=== PATIENT | female | born 1955 | race Caucasian/White ===

== ENCOUNTER 2016-11-27 07:57 | Emergency (ER) | payer BC, OTHER ==
[2016-11-27 09:02] VITALS: BP 158/74
--- NOTE | 2016-11-27 13:24 | UC ---
Kai Jimenez Claudia, scribed for Chrissy Ferraro DO on 11/27/16 at 0839 . Upper Extremity HPI - HPI Summary HPI Summary: 61 year old female presents to the [facility] with left shoulder pain. Pt notes sudden onset Monday. She notes the pain is aggravated with movement and is alleviated with rest.She notes pain aggravated specifically during internal rotation, and external rotation, and extension of the arm. Pt is unsure of the reason for her pain but thinks it might be from swinging her purse into her car , she denies any trauma. Pt notes pain aggravates throughout the day, especially at night. Pt only has pain when she moves the arm. No pain at rest or with exertion if the left arm is at rest. She notes that she does not have full ROM. She notes the pain is more on the anterior portion of her upper arm. PT denies any fever, chills, abd pain, SOB, CP, dizziness, ORTEGA, dysuria,cough, N/ V/D, skin diaphoresis. Pt is concerned because her right shoulder is not level with her left. PMHx of Neuropathy PSHx cervical disc dissection - History of Current Complaint Chief Complaint: UCRespiratory Stated Complaint: SHOULDER COMPLAINT Hx Obtained From: Patient Onset/Duration: Sudden Onset, Lasting Days, Still Present Severity Initially: Moderate Severity Currently: Moderate Location Of Pain: Is Discrete @ Character: Sharp, Aching Aggravating Factor(s): Movement Alleviating Factor(s): Rest Associated Signs And Symptoms: Negative: Swelling, Redness, Bruising, Fever, Weakness, Numbness/Tingling - Allergies/Home Medications Allergies/Adverse Reactions: Allergies Allergy/AdvReac Type Severity Reaction Status Date / Time Caffeine Allergy Intermediate See Comment Verified 11/27/16 08:14 Home Medications: Home Medications Cetirizine* [ZyrTEC*] 11/27/16 [History] Gabapentin CAP(*) [Neurontin 300 CAP(*)] 1 mg PO DAILY 11/27/16 [History Confirmed 11/27/16] Hydrocortisone 1% CREAM* 11/27/16 [History] diPHENhydraMINE PO* [Benadryl PO*] 11/27/16 [History] PMH/Surg Hx/FS Hx/Imm Hx Previously Healthy: Yes Endocrine History Of: Denies: Diabetes, Thyroid Disease Cardiovascular History Of: Reports: Cardiac Disorders - HEAR MURMUR: BENIGN, Hypertension Denies: Pacemaker/ICD, Myocardial Infarction, Congestive Heart Failure, Deep Vein Thrombosis Respiratory History Of: Reports: Asthma - EXERCISED INDUCED Denies: COPD, Pneumonia, Pulmonary Embolism GI/ History Of: Denies: Ulcer Neurological History Of: Denies: Migraine Psychological History Of: Denies: Anxiety, Depression, Bipolar Disorder, Schizophrenia Cancer History Of: Denies: Lung Cancer, Breast Cancer Other History Of: Negative For: Anticoagulant Therapy - Surgical History Surgical History: Yes Surgery Procedure, Year, and Place: 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, nose reconstructed, cervical disc surgery - Family History Known Family History: Positive: Cardiac Disease, Hypertension, Diabetes - Social History Occupation: Employed Full-time Lives: With Family Alcohol Use: None Substance Use Type: None Smoking Status (MU): Former Smoker Length of Time of Smoking/Using Tobacco: QUIT 25 YEARS AGO Review of Systems Constitutional: Negative - NO FEVER CHILLS Skin: Negative Eyes: Negative ENT: Negative Respiratory: Negative - NO SOB, COUGH Cardiovascular: Negative - NO CP Gastrointestinal: Negative - NO ABD PAIN, N/V/D Genitourinary: Negative Motor: Negative Neurovascular: Negative Musculoskeletal: Other: - left shoulder pain Neurological: Negative Psychological: Negative All Other Systems Reviewed And Are Negative: Yes Physical Exam Triage Information Reviewed: Yes Appearance: Well-Appearing, No Pain Distress Vital Signs: Initial Vital Signs Temp 97.8 F 11/27/16 08:20 Pulse 55 11/27/16 08:20 Resp 16 11/27/16 08:20 BP 158/74 11/27/16 08:20 Pulse Ox 96 11/27/16 08:20 Vital Signs Reviewed: Yes Eye Exam: Normal Eyes: Positive: Conjunctiva Clear. Negative: Discharge ENT Exam: Normal ENT: Positive: Hearing grossly normal, TMs normal. Negative: Tonsillar swelling , Tonsillar exudate, Trismus, Muffled/hoarse voice Dental Exam: Normal Neck exam: Normal Neck: Positive: Supple Respiratory Exam: Normal Respiratory: Positive: Lungs clear, Normal breath sounds, No respiratory distress, No accessory muscle use Cardiovascular Exam: Normal Cardiovascular: Positive: RRR, No Murmur Abdominal Exam: Normal Abdomen Description: Positive: Nontender, Soft Musculoskeletal Exam: Normal Neurological Exam: Normal Neurological: Positive: Alert, Muscle Tone Normal Psychological Exam: Normal Psychological: Positive: Age Appropriate Behavior Skin Exam: Normal - Additional Comments UPON ENTRANCE TO [facility] THOROUGH VISUAL INSPECTION THE PT CARRIES THE LEFT SHOULDER HIGHER THAN THE RIGHT, HOWEVER NO OTHER ABNORMALITIES ARE APPRECIATED BY VISUAL INSPECTION. NO BONY TENDERNESS ON PALPATION. ROM IS MILDLY RESTRICTED IN ALL PLANES DUE TO PAIN BUT WORST IN FLEXION AND INTERNAL ROTATION. MILD TENDERNESS TO PALPATION AT THE INSERTIONS OF SUPRASPINATIS, SUBSCAPULARIS, AND BICEPS TENDON., NO WEAKNESS WAS REVEALED BY SPECIAL TEST FOR ROTATOR CUFF TENDON. PT HAS GREATEST TENDERNESS OF SOFT TISSUES OF UPPER BRACHIUM. PT HAS NOTABLE LEVATOR SCAPULAE TIGHTNESS. Upper Extremity Course/Dx - Differential Dx/Diagnosis Differential Diagnosis/HQI/PQRI: Arthritis, Bursitis, Strain, Sprain Provider Diagnoses: SHOULDER SPRAIN Discharge - Discharge Plan Condition: Stable Disposition: HOME Prescriptions: Naproxen [Naproxen 500 MG TABS] 500 mg PO BID #10 tab Patient Education Materials: Shoulder Sprain (ED) Referrals: Gwen Elder NP [Primary Care Provider] - 2 Weeks Additional Instructions: ANTI-INFLAMMATORY MEDICATION: You have received a prescription for an antiinflammatory agent. This is an excellent, safe drug for pain control. In addition, it has potent antiinflammatory effects which are beneficial, especially in the treatment of injuries, arthritis, or tendonitis. It's best to take this medicine with food. Persons with ulcer disease or allergy to aspirin should notify their physician of this before taking this drug. Take the medication exactly as prescribed. Don't take additional doses unless instructed to do so by your doctor. If you develop wheezing, shortness of breath, hives, faintness, stomach pain, vomiting, or dark black stools, return for re-evaluation at once. ALTERNATE HOT AND COLD ONE RIGHT AFTER THE OTHER FOR 10-20 MINUTES EACH. ICE PACKS: Apply ice packs frequently against the painful area. Many different schedules are recommended, such as "20 minutes on, 20 minutes off" or "one hour ice, two hours rest." If you need to work, you may need to go longer between ice treatments. You should plan to have the area ice packed AT LEAST one fourth of the time. The ice should be applied over the wrap, tape, or splint, or over a layer of cloth -- not directly against the skin. Some ice bags have a built-in cloth and can be put directly on the skin. WARM PACKS: Apply gentle heat (such as a heating pad or hot water bottle) for about 20 to 30 minutes about every two hours -- at least four times daily. Warmth and elevation will help you make a more rapid recovery, and will ease the pain considerably. Do not use HOT heat, and never apply heat for longer than 30 minutes. The continuous heat can invisibly damage skin and muscles -- even when no burn is seen on the surface. Damaged muscles can make you MORE sore. PHYSICAL THERAPY REFERRAL: You have been prescribed physical therapy. Treatments may include stretching, exercise, application of heat or cold, and other modalities. After an injury, PT can reduce swelling and pain. In recovery, PT is used to restore mobility and strength. Your specific treatment goals are: Reduction of Swelling (EGS, US, ice as needed) __x___ Pain Reduction (EGS, US, ice as needed) TENS Pack Fitting and Instruction Wound Hydrotherapy _x____ Preservation of Mobility Gnosticist of Mobility Strength Gnosticist __x___ Work or Sports Hardening This instruction sheet also serves as your PHYSICAL THERAPY REFERRAL! Please take it with you to the therapist, so he/she will be aware of your diagnosis and treatment plan. You may see the physical therapist of your choice for these treatments, but may wish to check with your insurance to be sure the provider you select is covered. It's important to see the doctor to whom you have been referred for follow up. THE SLING IS FOR COMFORT. REMEMBER TO TAKE YOUR ARM OUT OF THE SLING SEVERAL TIMES A DAY TO MOVE THE ELBOW SO IT DOES NOT GET STIFF. YOU WOULD LIKELY BENEFIT FROM OSTEOPATHIC TREATMENT. WE RECOMMEND THAT YOU FIND AN OSTEOPATHIC PHYSICIAN IN YOUR AREA WHO FOCUSES EXCLUSIVELY ON OSTEOPATHIC MANIPULATIVE MEDICINE WITH EXPERTISE IN MYOFACIAL, LYMPHATIC, VISCERAL AND INTEROSSEOUS WORK The documentation as recorded by the Kai xavier Claudia accurately reflects the service I personally performed and the decisions made by me, Chrissy Ferraro DO.
== END 2016-11-27 09:16 | disposition home or self-care (01) ==
LOC: UCEAST 07:57
DX: S43.402A Unspecified sprain of left shoulder joint, initial encounter (principal); Z87.891 Personal history of nicotine dependence; X58.XXXA Exposure to other specified factors, initial encounter; Y92.9 Unspecified place or not applicable; J45.990 Exercise induced bronchospasm
CPT/HCPCS: 99213; G0463

== ENCOUNTER 2016-12-28 15:22 | Emergency (ER) | payer BC, OTHER ==
[2016-12-28 15:39] VITALS: BP 168/68
--- NOTE | 2016-12-28 15:58 | UC ---
Shoulder Pain HPI - HPI Summary HPI Summary: 61 yo female with 3/10 left trapezius pain atfer attempting to open a door at work today decreased ROM no weakness hx C-S fusion no ORTEGA - History of Current Complaint Chief Complaint: UCUpperExtremity Stated Complaint: SHOULDER/NECK INJURY Time Seen by Provider: 12/28/16 15:43 Hx Obtained From: Patient Onset/Duration: Sudden Onset, Lasting Hours Timing: Constant Severity Initially: Moderate Severity Currently: Mild Location Of Pain: Is Discrete @ - left trap Pain Intensity: 3 Pain Scale Used: 0-10 Numeric Character: Aching, Throbbing Aggravating Factor(s): Movement, Lifting Alleviating Factor(s): Rest Associated Signs And Symptoms: Positive: Negative Related History: Occupational Injury, Dominant Hand Right - Allergies/Home Medications Allergies/Adverse Reactions: Allergies Allergy/AdvReac Type Severity Reaction Status Date / Time Caffeine Allergy Intermediate See Comment Verified 12/28/16 15:39 PMH/Surg Hx/FS Hx/Imm Hx Previously Healthy: Yes Endocrine History Of: Reports: Dyslipidemia Denies: Diabetes, Thyroid Disease Cardiovascular History Of: Reports: Cardiac Disorders - HEAR MURMUR: BENIGN, Hypertension Denies: Pacemaker/ICD, Myocardial Infarction, Congestive Heart Failure, Deep Vein Thrombosis Respiratory History Of: Denies: COPD, Asthma, Pneumonia, Pulmonary Embolism GI/ History Of: Denies: Ulcer Neurological History Of: Denies: Migraine Psychological History Of: Denies: Anxiety, Depression, Bipolar Disorder, Schizophrenia Cancer History Of: Denies: Lung Cancer, Breast Cancer Other History Of: Negative For: Anticoagulant Therapy - Surgical History Surgical History: Yes Surgery Procedure, Year, and Place: CERVICAL SPINE SURGERY, 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 - Family History Known Family History: Positive: Cardiac Disease, Hypertension, Diabetes - Social History Alcohol Use: Occasionally Alcohol Amount: 2-3 DRINKS/WEEK Substance Use Type: None Smoking Status (MU): Former Smoker Length of Time of Smoking/Using Tobacco: QUIT 25 YEARS AGO Review of Systems Constitutional: Negative Skin: Negative Eyes: Negative ENT: Negative Respiratory: Negative Cardiovascular: Negative Gastrointestinal: Negative Genitourinary: Negative Motor: Decreased ROM Neurovascular: Negative Musculoskeletal: Myalgia Neurological: Negative Psychological: Negative All Other Systems Reviewed And Are Negative: Yes Physical Exam Triage Information Reviewed: Yes Appearance: Well-Appearing, No Pain Distress, Well-Nourished Vital Signs: Initial Vital Signs Temp 98.2 F 12/28/16 15:28 Pulse 50 12/28/16 15:28 Resp 16 12/28/16 15:28 BP 168/68 12/28/16 15:28 Pulse Ox 98 12/28/16 15:28 Vital Signs Reviewed: Yes Eyes: Positive: Conjunctiva Clear ENT: Positive: Hearing grossly normal. Negative: Nasal congestion, Nasal drainage, Tonsillar exudate, Trismus, Muffled/hoarse voice Neck: Positive: Supple, Nontender Respiratory: Positive: Lungs clear, Normal breath sounds, No respiratory distress Cardiovascular: Positive: RRR, No Murmur Abdomen Description: Positive: Nontender, No Organomegaly Musculoskeletal: Positive: Strength Intact, ROM Limited @ - able to abduct left shoulder to 120 degrees, left trapezius tender Neurological: Positive: Alert, Muscle Tone Normal Skin Exam: Normal Shoulder Course/Dx - Differential Dx/Diagnosis Provider Diagnoses: left trapezius strain/spasm Discharge - Discharge Plan Condition: Stable Disposition: HOME Patient Education Materials: Muscle Strain (ED) Forms: *Work Release Referrals: Gwen Elder NP [Primary Care Provider] - 2 Weeks (recheck BP) Additional Instructions: PT consult adveliana or sabas recheck here in one week if not better
== END 2016-12-28 16:16 | disposition home or self-care (01) ==
LOC: UCEAST 15:22
DX: S46.812A Strain of other muscles, fascia and tendons at shoulder and upper arm level, left arm, initial encounter (principal); X50.9XXA Other and unspecified overexertion or strenuous movements or postures, initial encounter; Y99.0 Civilian activity done for income or pay; E78.5 Hyperlipidemia, unspecified; Z87.891 Personal history of nicotine dependence; Z91.018 Allergy to other foods
CPT/HCPCS: 99211; G0463

== ENCOUNTER 2017-03-05 08:52 | Emergency (ER) | payer BC, OTHER ==
[2017-03-05 08:58] VITALS: BP 126/91
--- NOTE | 2017-03-05 09:28 | UC ---
Eye Complaint HPI - HPI Summary HPI Summary: The patient comes in today for: 1. Right upper eye lid pain: Onset: 6 days ago. Palliative/provocative: Better if she keeps her eye closed. Opening the eye lid makes it worse. Quality: Burning, itching. Region: Right upper eye lid. Severity: 5/10 if she "tries to squeeze her eye shut." Time: Constant. Associated symptoms: Fevers: None. Discharge: present, but clear. Vision: * - History of Current Complaint Chief Complaint: UCEye Stated Complaint: EYE COMPLAINT Time Seen by Provider: 03/05/17 09:16 Hx Obtained From: Patient - Allergies/Home Medications Allergies/Adverse Reactions: Allergies Allergy/AdvReac Type Severity Reaction Status Date / Time Caffeine Allergy Intermediate See Comment Verified 03/05/17 08:54 Home Medications: Home Medications Erythromycin (Ophth) [Ilotycin] 03/05/17 [History] PMH/Surg Hx/FS Hx/Imm Hx Previously Healthy: Yes - Cervical spinal surgery. 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 c section - Family History Known Family History: Positive: Cardiac Disease, Hypertension, Diabetes - Social History Occupation: Employed Full-time Alcohol Use: Daily Alcohol Amount: 1 drink/day Substance Use Type: None Smoking Status (MU): Former Smoker Length of Time of Smoking/Using Tobacco: QUIT 25 YEARS AGO Review of Systems Constitutional: Negative Skin: Rash Eyes: Drainage ENT: Negative Respiratory: Negative Cardiovascular: Negative Gastrointestinal: Negative All Other Systems Reviewed And Are Negative: Yes Physical Exam Triage Information Reviewed: Yes Appearance: Well-Appearing, No Pain Distress, Well-Nourished Vital Signs: Initial Vital Signs Temp 97.9 F 03/05/17 08:57 Pulse 56 03/05/17 08:57 Resp 16 03/05/17 08:57 BP 126/91 03/05/17 08:57 Pulse Ox 98 03/05/17 08:57 Vital Signs Reviewed: Yes Eyes: Positive: Conjunctiva Clear, Other: - Right eye: There is upper eye lid edema and erythema. There is purulent discharge from the lateral right third of the lid. There is tenderness in that area (the center of redness and tenderness). The conjunctiva is for the most part clear--minimal injection. Cornea is clear. EOMI. NO pain with movement of the eye. Squinting of the eyes makes it worse. There is no redness or FB under the right upper lid. ENT: Negative: Pharyngeal erythema, Nasal congestion, Nasal drainage, TM bulging , TM dull, TM red, Tonsillar swelling, Tonsillar exudate Dental: Negative: Gross Decay/Caries @, Dental Fracture @ Neck: Positive: Supple, Nontender, No Lymphadenopathy. Negative: Nuchal Rigidity Respiratory: Positive: Lungs clear, No respiratory distress, No accessory muscle use. Negative: Crackles, Rhonchi Cardiovascular: Positive: RRR, No Murmur Abdomen Description: Positive: Nontender, No Organomegaly, Soft Musculoskeletal: Positive: Strength Intact, ROM Intact Neurological: Positive: Alert, Muscle Tone Normal Psychological: Positive: Age Appropriate Behavior, Consolable Skin: Positive: rashes - Upper right eye lid is swollen and tender.. Negative: breakdown Eye Complaint Course/Dx - Differential Dx/Diagnosis Provider Diagnoses: Sty of the right upper lid with cellulitis Discharge - Discharge Plan Condition: Stable Disposition: HOME Patient Education Materials: Juan David (ED) Referrals: Gwen Elder NP [Primary Care Provider] - 1 Day (Please see us or your primary care provider tomorrow for re-evaluation. Apply hot compresses (as hot as you can stand) to the right eye for 20 minutes 5 times a day. )
== END 2017-03-05 10:25 | disposition home or self-care (01) ==
LOC: UCEAST 08:52
DX: H00.011 Hordeolum externum right upper eyelid (principal); H00.031 Abscess of right upper eyelid; I10 Essential (primary) hypertension
CPT/HCPCS: 87070; 87205; 99212; G0463

== ENCOUNTER 2017-05-03 12:24 | Emergency (ER) | payer BC, OTHER ==
[2017-05-03] MEDS ORDERED: Albuterol/Ipratropium NEB.SOL* Albuterol 2.5 MG/Ipratropium 0.5 MG 3 ML INH ONE (12:49)
--- NOTE | 2017-05-03 12:53 | UC ---
Shortness of Breath HPI - HPI Summary HPI Summary: complaint of wheezing and coughing that started approx 1 hour ago she inhaled fumes from large machinery outside her office window this morning at 9:30 this morning hx of being sensitive to perfumes and environmental triggers used to have an albuterol inhaler but lost it she denies any chest pain, dizziness, diaphoreisis and shortness of breath at this time - History of Current Complaint Hx Obtained From: Patient <Nazanin Ward - Last Filed: 05/03/17 13:56> <Jagruti Madrigal - Last Filed: 05/03/17 17:39> - History of Current Complaint Chief Complaint: UCRespiratory Stated Complaint: SHORTNESS OF BREATH Time Seen by Provider: 05/03/17 12:46 - Allergy/Home Medications Allergies/Adverse Reactions: Allergies Allergy/AdvReac Type Severity Reaction Status Date / Time Caffeine Allergy Intermediate See Comment Verified 03/05/17 08:54 ENVIRONMENTAL ALLERGIES Allergy Severe Shortness Uncoded 05/03/17 12:31 of Breath PMH/Surg Hx/FS Hx/Imm Hx Previously Healthy: Yes Cardiovascular History: Hypertension Respiratory History: Asthma Other History Of: Negative For: HIV, Hepatitis B, Hepatitis C, Anticoagulant Therapy - Surgical History Surgical History: Yes Surgery Procedure, Year, and Place: CERVICAL SPINE SURGERY, 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 - Family History Known Family History: Positive: Cardiac Disease, Hypertension, Diabetes - Social History Occupation: Employed Full-time Lives: With Family Alcohol Use: Occasionally Alcohol Amount: 2-3 DRINKS/WEEK Substance Use Type: None Smoking Status (MU): Former Smoker Length of Time of Smoking/Using Tobacco: QUIT 25 YEARS AGO <Nazanin Ward - Last Filed: 05/03/17 13:56> Review of Systems Constitutional: Negative Skin: Negative Eyes: Negative ENT: Negative Respiratory: Other - wheezing Cardiovascular: Negative Gastrointestinal: Negative Genitourinary: Negative Motor: Negative Neurovascular: Negative Musculoskeletal: Negative Neurological: Negative Psychological: Negative All Other Systems Reviewed And Are Negative: Yes <Nazanin Ward - Last Filed: 05/03/17 13:56> Physical Exam Triage Information Reviewed: Yes Appearance: No Pain Distress, Well-Nourished Vital Signs: Initial Vital Signs Temp 98.4 F 05/03/17 12:35 Pulse 63 05/03/17 12:35 Resp 16 05/03/17 12:35 BP 176/71 05/03/17 12:35 Pulse Ox 100 05/03/17 12:35 Vital Signs Reviewed: Yes Eyes: Positive: Conjunctiva Clear ENT: Positive: Pharynx normal, TMs normal Neck: Positive: No Lymphadenopathy Respiratory: Positive: No respiratory distress, No accessory muscle use, Wheezing Cardiovascular: Positive: RRR, No Murmur, Pulses Normal Abdomen Description: Positive: Nontender, Soft Bowel Sounds: Positive: Present Musculoskeletal: Positive: No Edema Neurological: Positive: Alert Psychological Exam: Normal Skin Exam: Normal <Nazanin Ward - Last Filed: 05/03/17 13:56> Vital Signs: Initial Vital Signs Temp 98.4 F 05/03/17 12:35 Pulse 63 05/03/17 12:35 Resp 16 05/03/17 12:35 BP 176/71 05/03/17 12:35 Pulse Ox 100 05/03/17 12:35 <Jagruti Madrigal - Last Filed: 05/03/17 17:39> Re-Evaluation - Re-Evaluation First Eval Re-Evaluation Time: 13:43 Change: Improved - less wheezing states she feels slightly short of breath at this time <Nazanin Ward - Last Filed: 05/03/17 13:56> Shortness of Breath Dx - Course Course Of Treatment: tretament with duoneb, solumedrol benadryl with relief of shortness of breath. ECG show sinus bradycardia, no ectopy. will treat with prednisone, albuterol, followup wioth product development specialist - Differential Dx/Diagnosis Differential Diagnosis/HQI/PQRI: Asthma Provider Diagnoses: asthma exacerbation <Nazanin Ward - Last Filed: 05/03/17 13:56> Discharge <Nazanin Ward - Last Filed: 05/03/17 13:56> <Jagruti Madrigal - Last Filed: 05/03/17 17:39> - Discharge Plan Condition: Stable Disposition: HOME Prescriptions: Albuterol HFA INHALER* [Ventolin HFA Inhaler*] 2 puff INH Q4H PRN #1 mdi PRN Reason: Wheezing predniSONE TAB* [Deltasone TAB*] 50 mg PO DAILY #5 tab Patient Education Materials: Asthma (ED), Wheezing (ED), Allergies (ED) Forms: *Work Release Referrals: Gwen Elder NP [Primary Care Provider] - Jon Leggett MD [Medical Doctor] - Additional Instructions: Please take predisone as directed Use your albuterol inhaler every 4-6 hours when needed for wheezing, shortness of breath or uncontrolled coughing. Increase fluids and rest Please review your discharge instructions. If your symptoms do not improve please call your primary care provider or return to urgent care. Please call medical staff assistant for further evaluation. Your blood pressure is elevated. Please contact your primary care provider within 1 -4 weeks for further evaluation Attestation Statement User Type: Provider - I was available for consult. This patient was seen by the NICKY. The patient was not presented to, seen by, or examined by me. -Vanesa <Jagruti Madrigal - Last Filed: 05/03/17 17:39>
[2017-05-03] MEDS ORDERED: methylPREDNISolone 125 MG* 2 ML VIAL IV ONE (13:54)
[2017-05-03] MEDS ORDERED: diPHENhydraMINE IV* 50 MG/ML 1 ml VIAL (BENADRYL) IM ONE (13:55)
[2017-05-03 14:35] VITALS: BP 194/101
== END 2017-05-03 14:40 | disposition home or self-care (01) ==
LOC: UCEAST 12:24
DX: J45.901 Unspecified asthma with (acute) exacerbation (principal); Z87.891 Personal history of nicotine dependence
CPT/HCPCS: 93005; 96372; 99212; A9270-GY; G0463; J1200; J2930

== ENCOUNTER 2018-02-24 11:18 | Emergency (ER) | payer BC, OTHER ==
[2018-02-24 12:35] VITALS: BP 135/68
[2018-02-24] MEDS ORDERED: Tetan/Diph/Pertus SYR(Tdap)* 0.5 ML SYR(BOOSTRIX) use SYR IM ONE (12:46)
--- NOTE | 2018-02-24 12:51 | UC ---
Bite Injury/Animal HPI - HPI Summary HPI Summary: 62 YO FEMALE S/P PW FROM DOG BITE LEFT FA OCCURRED ABOUT 3-4 HRS AGO NO F/C SHE IS RIGHT HANDED NOT UP TO DATE WITH TETANUS - History of Current Complaint Chief Complaint: UCBiteInjury Stated Complaint: DOG BITE Time Seen by Provider: 02/24/18 12:27 Hx Obtained From: Patient Severity Currently: Mild Severity Initially: Mild Pain Intensity: 3 Pain Scale Used: 0-10 Numeric Onset/Duration: Sudden Onset Type of Bite: Animal Has Animal Been Immunized?: Yes Character: Puncture Aggravating Factor(s): Nothing Alleviating Factor(s): Nothing Associated Signs And Symptoms: Negative: Fever, Erythema, Drainage, Swelling, Lymphadenopathy, Numbness/Tingling, Limited ROM Animal Available for Observation: Yes Animal Control Notified: Yes - Allergies/Home Medications Allergies/Adverse Reactions: Allergies Allergy/AdvReac Type Severity Reaction Status Date / Time MS Caffeine [Caffeine] Allergy Intermediate See Comment Verified 02/24/18 12:24 ENVIRONMENTAL ALLERGIES Allergy Severe Shortness Uncoded 05/03/17 12:31 of Breath Home Medications: Home Medications Fluticasone NASAL SPRAY 50MCG* [Flonase NASAL SPRAY 50MCG*] 2 spray NASAL BEDTIME 02/24/18 [History Confirmed 02/24/18] Lisinopril/HCTZ 10/12.5(NF) [Zestoretic 10/12.5(NF)] 1 tab PO DAILY 02/24/18 [ History Confirmed 02/24/18] PMH/Surg Hx/FS Hx/Imm Hx Previously Healthy: Yes Cardiovascular History: Hypertension Other History Of: Negative For: HIV, Hepatitis B, Hepatitis C, Anticoagulant Therapy - Surgical History Surgical History: Yes Surgery Procedure, Year, and Place: CERVICAL SPINE SURGERY, 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 - Family History Known Family History: Positive: Cardiac Disease, Hypertension, Diabetes - Social History Alcohol Use: Occasionally Alcohol Amount: 2-3 DRINKS/WEEK Substance Use Type: None Smoking Status (MU): Former Smoker Length of Time of Smoking/Using Tobacco: QUIT 25 YEARS AGO Review of Systems Constitutional: Negative Skin: Negative Eyes: Negative ENT: Negative Respiratory: Negative Cardiovascular: Negative Gastrointestinal: Negative Genitourinary: Negative Motor: Negative Neurovascular: Negative Musculoskeletal: Negative Neurological: Negative Psychological: Negative Is Patient Immunocompromised?: No All Other Systems Reviewed And Are Negative: Yes Physical Exam Triage Information Reviewed: Yes Appearance: Well-Appearing, No Pain Distress, Well-Nourished Vital Signs: Initial Vital Signs Temp 98.0 F 02/24/18 12:28 Pulse 56 02/24/18 12:28 Resp 16 02/24/18 12:28 BP 135/68 02/24/18 12:28 Pulse Ox 98 02/24/18 12:28 Eyes: Positive: Conjunctiva Clear ENT: Positive: Hearing grossly normal. Negative: Nasal congestion, Nasal drainage, Trismus, Muffled voice, Hoarse voice Neck: Positive: Supple, Nontender, No Lymphadenopathy Respiratory: Positive: Lungs clear, Normal breath sounds, No respiratory distress Cardiovascular: Positive: RRR, No Murmur Musculoskeletal: Positive: ROM Intact, No Edema Neurological: Positive: Alert Psychological Exam: Normal Skin Exam: Other - pw LEFT fa Bite Injury Course/Dx - Differential Dx/Diagnosis Provider Diagnoses: left forearm dogbite Discharge - Sign-Out/Discharge Documenting (check all that apply): Discharge/Admit/Transfer - Discharge Plan Condition: Stable Disposition: HOME Prescriptions: Amoxicillin/Clavulanate TAB* [Augmentin TAB 875*] 875 mg PO BID #10 tab Patient Education Materials: Animal Bite (ED) Referrals: Carlos Sanchez, [employer] [Primary Care Provider] - 5 Days Additional Instructions: GENTLY CLEAN TWICE DAILY WITH SOAP AND WATER ANTIBIOTIC OINT DRESSING RECHECK FOR CONCERNS OF INFECTION TETANUS SHOT GIVEN TODAY - Billing Disposition and Condition Condition: STABLE Disposition: HOME Images Front/Back of Body, Lg (Sauk): 1 - pw- 3mm long 1mmwide.3mm deep
== END 2018-02-24 13:20 | disposition home or self-care (01) ==
LOC: UCEAST 11:18
DX: S51.832A Puncture wound without foreign body of left forearm, initial encounter (principal); W54.0XXA Bitten by dog, initial encounter; Y93.9 Activity, unspecified; Y92.9 Unspecified place or not applicable; Z23 Encounter for immunization; I10 Essential (primary) hypertension; Z87.891 Personal history of nicotine dependence
CPT/HCPCS: 90715; 99212; G0463

== ENCOUNTER 2019-09-11 17:57 | Emergency (ER) | payer BC ==
--- OUTSIDE RECORDS SUMMARY | 2019-09-11 18:43 | XMS REPORT | Continuity of Care Document ---
:1955 External Reference #:[id number] Author Name Dung Golden M.D. Address [address] [place] [id number] Care Team Providers Name Role Phone Darren Garcia M.D. 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 Onset: 09/19/2016 Nuclear senile cataract Dung Golden M.D. Onset: 09/19/2016 Cellulitis of periorbital region Neva James O.D. Onset: 03/07/2017 Chalazion Neva James O.D. Onset: 03/10/2017 Social History Type Date Description Comments Sex Unknown ETOH Use Drinks 5 Alcoholic Beverages Per Week Tobacco Use Start: Unknown End: Patient is a former x 30 years ago Unknown smoker Recreational Drug Use Denies Drug Use Smoking Status Reviewed: 07/15/19 Patient is a former x 30 years ago smoker Allergies, Adverse Reactions, Alerts Active Allergies Reaction Severity Comments Date Caffeine 09/19/2016 Inactive Allergies NKDA 09/19/2016 Medications Active Medications SIG Qnty Indications Ordering Provider Date Neomycin/Polymyxin/De apply a thin 3.500gm H00.14 Dung Golden, 2018 xamethasone strip to the left M.D. 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 Tablets Cetirizine HCL Unknown 10mg Tablets Multi For Her 50+ Unknown Tablets Prednisone Unknown 50mg Tablets Proair HFA Unknown 108(90Base) mcg/Act Aerosol Breo Jose Leggett, Walt Pierre, 200-25mcg/Inh Aerosol Mitul Montelukast Sodium Unknown 10mg Tablets Cyclobenzaprine HCL Take 1 To 2 Unknown 5mg Tablets By Mouth Tablets Three Times A Day as Needed Flonase Allergy 2 sprays Unknown Relief intranasal daily 50mcg/Act every night Suspension Immunizations Description No Information Available Vital Signs Date Vital Result Comment 06/21/2017 3:04pm BP Systolic 152 mmHg BP Diastolic 86 mmHg Heart Rate 60 /min Respiratory Rate 17 /min 03/13/2017 3:54pm BP Systolic 136 mmHg BP Diastolic 70 mmHg Heart Rate 64 /min Respiratory Rate 12 /min Results Description No Information Available Procedures Description No Information Available Medical Devices Description No Information Available Encounters Description No Information Available Assessments Date Code Description Provider 07/15/2019 H00.14 Chalazion left upper eyelid Dung Golden M.D. Plan of Treatment 07/15/2019 - Dung Golden M.D.H00.14 Chalazion left upper eyelidNew Medication:Neomycin/Polymyxin/Dexamethasone 3.5-81052-7.1 - apply a thin strip to the left eye at night for 2 weeks, then discontinueComments:Smoking can increase the risk of developing or worsening any eye related disease, as well as affect your overall health. If you are a smoker, we strongly recommend that you quit.If you are not a smoker, we strongly recommend that you do not start. Follow all instructions given by Dr. Golden. If you decide you would like to schedule the excision before your next appointment, please call Edith Simpson at . Our office has sent in a prescription for Erythromycin ointment to your pharmacy. Please pick this medication up before your scheduled excision and bring it with you. We recommend that you bring someone to drive you home.Follow up:Schedule Excision Functional Status Description No Information Available Mental Status Description No Information Available Referrals Description No Information Available
[2019-09-11 19:10] LABS: Albumin 4.5 g/dL (3.2-5.2); Albumin/Globulin Ratio 1.4 (1-3); BUN/Creatinine Ratio 22.2 (8-20); Calcium 9.7 mg/dL (8.6-10.3); EGFR African American 98.7 (>60); EGFR Non-African American 81.6 (>60); Globulin 3.2 g/dL (2-4); Total Bilirubin 0.7 mg/dL (0.2-1.0); Total Protein 7.7 g/dL (6.4-8.9)
[2019-09-11 19:11] LABS: INR 1.04 (0.82-1.09)
--- NOTE | 2019-09-11 20:20 | ED ---
Asthma - HPI Summary HPI Summary: Pt is a 64 y/o F presenting to the ED with a chief complaint of an asthma attack. She states she was in the car today when she had an unprovoked asthma attack. She stopped at her doctors office who gave her a nebulizer tx that helped her wheezing, then they did an EKG where they found PACs. They wanted her to come here for cardiac workup. - History of Current Complaint Chief Complaint: EDAsthma Stated Complaint: CHEST PAIN PER PT Time Seen by Provider: 09/11/19 20:05 Hx Obtained From: Patient Onset/Duration: Sudden Onset, Lasting Hours, Still Present Timing: Hours Initial Severity: Moderate Current Severity: None Pain Intensity: 0 Pain Scale Used: 0-10 Numeric Location/Character: Wheezing Aggravating Symptoms: Nothing Alleviating Symptoms: Inhalers/Nebulizers Associated Signs and Symptoms: Positive: Shortness of Breath - Allergy/Home Medications Allergies/Adverse Reactions: Allergies Allergy/AdvReac Type Severity Reaction Status Date / Time MS Caffeine [Caffeine] Allergy Intermediate See Comment Verified 02/24/18 12:24 ENVIRONMENTAL ALLERGIES Allergy Severe Shortness Uncoded 05/03/17 12:31 of Breath Home Medications: Home Medications Doxycycline TAB(NF) [Doxycycline TAB (NF)] 50 mg PO BID WITH MEALS 09/11/19 [ History Confirmed 09/11/19] Lisinopril/HCTZ 20/12.5(NF) [Zestoretic 20/12.5(NF)] 1 tab PO QAM 09/11/19 [ History Confirmed 09/11/19] Montelukast Sodium TAB* [Singulair TAB*] 10 mg PO BEDTIME 09/11/19 [History Confirmed 09/11/19] metroNIDAZOLE [Metronidazole 0.75 % gel] 1 applic TOPICAL DAILY 09/11/19 [ History Confirmed 09/11/19] PMH/Surg Hx/FS Hx/Imm Hx Previously Healthy: Yes Endocrine/Hematology History: Denies: Hx Anticoagulant Therapy, Hx Blood Disorders, Hx Blood Transfusions, Hx Bone Marrow Disease, Hx Diabetes, Hx Systemic Lupus Erythematosus, Hx Sickle Cell Disease, Hx Thyroid Disease, Hx Anemia, Hx Unexplained Bleeding, Other Endocrine/Hematological Disorders Cardiovascular History: Denies: Hx Aneurysm, Hx Angina, Hx Angioplasty, Hx Atrial Fibrillation, Hx Auto Implanted Cardiovert Defib, Hx Cardiac Arrest, Hx Cardiomegaly, Hx Congenital Heart Disease, Hx Congestive Heart Failure, Hx Coronary Artery Disease, Hx Deep Vein Thrombosis, Hx Embolism, Hx Hypercholesterolemia, Hx Hypotension, Hx Hypertension, Hx Myocardial Infarction, Hx Pacemaker/ICD, Hx Peripheral Vascular Disease, Hx Rheumatic Fever, Hx Syncope, Hx Valvular Heart Disease, Other Cardiovascular Problems/Disorders Respiratory History: Reports: Hx Asthma Denies: Hx Bronchopulmonary Dysplasia, Hx Chronic Bronchitis, Hx Chronic Obstructive Pulmonary Disease (COPD), Hx Cystic Fibrosis, Hx Lung Cancer, Hx Pleural Effusion, Hx Pneumonia, Hx Pulmonary Edema, Hx Pulmonary Embolism, Hx Seasonal Allergies, Hx Sleep Apnea, Other Respiratory Problems/Disorders GI History: Denies: Hx Ulcer Musculoskeletal History: Denies: Hx Osteoporosis Neurological History: Reports: Other Neuro Impairments/Disorders - spinal fusion Denies: Hx Headaches, Hx Migraine, Hx Spinal Cord Injury Psychiatric History: Denies: Hx Anxiety, Hx Attention Deficit Hyperactivity Disorder, Hx Autism, Hx Eating Disorder, Hx Oppositional Ramona Disorder, Hx Depression, Hx Panic Disorder, Hx Post Traumatic Stress Disorder, Hx Inpatient Treatment, Hx Community Mental Health Tx, Hx Schizophrenia, Hx Bipolar Disorder, Hx Suicide Attempt, Hx of Violent Episodes Against Others, Hx Substance Abuse, Other Psychiatric Issues/Disorders - Cancer History Hx Chemotherapy: No Hx Radiation Therapy: No - Surgical History Surgery Procedure, Year, and Place: CERVICAL SPINE SURGERY, 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 Hx Anesthesia Reactions: No Infectious Disease History: No Infectious Disease History: Denies: Hx Clostridium Difficile, Hx Hepatitis, Hx Human Immunodeficiency Virus (HIV), Hx of Known/Suspected MRSA, Hx Shingles, Hx Tuberculosis, Hx Known/ Suspected VRE, Hx Known/Suspected VRSA, History Other Infectious Disease, Traveled Outside the [place] in Last 30 Days - Family History Known Family History: Positive: Cardiac Disease, Hypertension, Diabetes - Social History Alcohol Use: Occasionally Alcohol Amount: 2-3 DRINKS/WEEK Hx Substance Use: No Substance Use Type: Reports: None Hx Tobacco Use: Yes Smoking Status (MU): Former Smoker Length of Time of Smoking/Using Tobacco: QUIT 25 YEARS AGO Review of Systems - ROS Summary Review of Systems Summary: Home Medications Medication Instructions Recorded Confirmed Type diPHENhydraMINE PO* [Benadryl PO 1 tab PO BEDTIME PRN 11/27/16 History 50 MG CAP*] Albuterol HFA INHALER* [Ventolin 2 puff INH Q4H PRN #1 mdi 05/03/17 Rx HFA Inhaler*] Amoxicillin/Clavulanate TAB* 875 mg PO BID #10 tab 02/24/18 Rx [Augmentin TAB 875*] Fluticasone NASAL SPRAY 50MCG* 2 spray NASAL BEDTIME 02/24/18 02/24/18 History [Flonase NASAL SPRAY 50MCG*] Lisinopril/HCTZ (NF) 1 tab PO DAILY 02/24/18 02/24/18 History [Zestoretic (NF)] Positive: Other - PACs on ekg Positive: Shortness Of Breath, Other - wheezing All Other Systems Reviewed And Are Negative: Yes Physical Exam - Summary Physical Exam Summary: General: Well-developed, Well-nourished female. No acute distress. HEENT: Normocephalic, Atraumatic. Eyes: Conjuctiva normal, PERRL. Oropharynx: Clear, mucous membranes moist, (-) exudates. Neck: Soft, FROM, (-) lymphadenopathy, (-) thyromegaly, (-) JVD. Cardiovascular: Normal sinus rhythm, (-) murmur. Lungs: Good air exchange, very minimal wheezing throughout, (-) rales, (-) rhonchi. Abdomen: Soft, non-tender, non-distended, (-) organomegaly, normal bowel sounds. Back: (-) CVA tenderness Extremities: No edema. Skin: Warm, dry, (-) rash. Neuro: Alert and oriented x3, no focal deficits. Psychiatric: Mildly anxious appearing Triage Information Reviewed: Yes Vital Signs On Initial Exam: Initial Vitals Temp Pulse Resp BP Pulse Ox 97.6 F 72 14 203/69 100 09/11/19 18:09 09/11/19 18:09 09/11/19 18:09 09/11/19 18:09 09/11/19 18:09 Vital Signs Reviewed: Yes Procedures - Sedation Patient Received Moderate/Deep Sedation with Procedure: No Diagnostics - Vital Signs Vital Signs Temp Pulse Resp BP Pulse Ox 09/11/19 18:09 97.6 F 72 14 203/69 100 - Laboratory Lab Results: Lab Results 09/11/19 09/11/19 Range/Units 18:40 18:40 INR (Anticoag Therapy) 1.04 (0.82-1.09) Sodium 139 (135-145) mmol/L Potassium 4.0 (3.5-5.0) mmol/L Chloride 103 (101-111) mmol/L Carbon Dioxide 27 (22-32) mmol/L Anion Gap 9 (2-11) mmol/L BUN 16 (6-24) mg/dL Creatinine 0.72 (0.51-0.95) mg/dL Est GFR ( Amer) 98.7 (>60) Est GFR (Non-Af Amer) 81.6 (>60) BUN/Creatinine Ratio 22.2 H (8-20) Glucose 108 H (70-100) mg/dL Calcium 9.7 (8.6-10.3) mg/dL Total Bilirubin 0.70 (0.2-1.0) mg/dL AST 16 (13-39) U/L ALT 11 (7-52) U/L Alkaline Phosphatase 58 (34-104) U/L Troponin I 0.00 (<0.03) ng/mL Total Protein 7.7 (6.4-8.9) g/dL Albumin 4.5 (3.2-5.2) g/dL Globulin 3.2 (2-4) g/dL Albumin/Globulin Ratio 1.4 (1-3) Result Diagrams: 09/11/19 21:07 09/11/19 18:40 Lab Statement: Any lab studies that have been ordered have been reviewed, and results considered in the medical decision making process. - Radiology CXR Radiology Interpretation Completed By: ED Physician Summary of Radiographic Findings: No acute changes. No infiltrate. No pleural effusion. Pending official radiology report. - EKG 1800 Cardiac Rate: NL - 72bpm EKG Rhythm: Sinus Rhythm ST Segment: Normal Ectopy: None Summary of EKG Findings: EKG at 1800 reveals normal sinus rhythm with rate of 72 BPM with some PACs, no acute changes, no ischemic changes. This EKG was reviewed and interpreted by Dr. Al. Re-Evaluation - Re-Evaluation 1st re-eval Re-Evaluation Time: 22:40 Change: Improved Comment: I have discussed results with the patient and shortness of breath is resolved. Discussed symptoms that warrant immediate return to ED. Asthma Course/Dx - Course Course Of Treatment: 64 year old female with known asthma usually triggered by centain things. had unprovoked sob today. In the ED, pt received 1 nebulizer tx. workup negative although nondiagnostic. patient feeling much better, discharged to home. follow up with PCP, follow up sooner for any worsening symptoms. - Diagnoses Provider Diagnoses: Shortness of breath Discharge ED - Sign-Out/Discharge Documenting (check all that apply): Patient Departure - Discharge Plan Condition: Stable Disposition: HOME Patient Education Materials: Shortness of Breath (ED) Referrals: Darren Garcia MD [Primary Care Provider] - Additional Instructions: Please follow up with your primary care physician within three days. Please return to ED for any new or worsening symptoms. - Billing Disposition and Condition Condition: STABLE Disposition: Home - Attestation Statements Document Initiated by Keli: Yes Documenting Scribe: Amrita Alvarez Provider For Whom Keli is Documenting (Include Credential): Sendy Al MD. Scribe Attestation: Amrita Jimenez, harmaned for Sendy Al MD. on 09/11/19 at 2318. Scribe Documentation Reviewed: Yes Provider Attestation: The documentation as recorded by the Amrita xavier accurately reflects the service I personally performed and the decisions made by , Sendy Al MD. Status of Scribe Document: Viewed
[2019-09-11] MEDS ORDERED: Albuterol/Ipratropium NEB.SOL* Albuterol 2.5 MG/Ipratropium 0.5 MG 3 ML INH ONE (20:27)
[2019-09-11 21:14] LABS: ABS Lymphocytes 1.6 10^3/ul (1.0-4.8); ABS Monocytes 0.6 10^3/ul (0-0.8); ABS Neutrophils 4.1 10^3/ul (1.5-7.7); Eosinophil % 0.6 %; Hematocrit 39 % (35-47); Hemoglobin 13.7 g/dL (12.0-16.0); Lymphocyte % 25.2 %; Mean Corpuscular HGB Conc 35 g/dL (31-36); Mean Corpuscular Hemoglobin 32 pg (27-31); Mean Corpuscular Volume 91 fL (80-97); Mean Platelet Volume 8.2 fL (7.4-10.4); Platelet Count 261 10^3/uL (150-450); Red Blood Count 4.34 10^6 /uL (3.70-4.87); Red Cell Distribution Width 13 % (10-15); White Blood Count 6.4 10^3/uL (3.5-10.8)
[2019-09-11 22:55] VITALS: BP 134/84
== END 2019-09-11 22:47 | disposition home or self-care (01) ==
LOC: ED 17:57
DX: R06.02 Shortness of breath (principal); Z87.891 Personal history of nicotine dependence; R94.31 Abnormal electrocardiogram [ECG] [EKG]
CPT/HCPCS: 36415; 71046; 80053; 84484; 85025; 85610; 93005; 99283; A9270-GY